=== PATIENT | female | born 1995 | race Caucasian/White ===

== ENCOUNTER → 2016-11-28 | Outpatient (CLI) | payer OTHER ==
--- NOTE | 2016-12-01 12:11 | EKG REPORT ---
SEVERITY:- NORMAL ECG - SINUS RHYTHM : Confirmed by: Jonnie Palomo MD 01-Dec-2016 12:11:07
--- NOTE | 2016-12-01 13:49 | [facility] ---
[facility] NAME: AURELIANO PLATT [facility] REFERENCE #: [id number] : 1995 DATE OF VISIT: 11/28/2016 PRIMARY CARE: [facility] ([facility]) - [place] office. CHIEF COMPLAINT: Follow up after SVT. HISTORY: Patient had a radiofrequency ablation for SVT about six years ago at [facility]. She is with her mother and sister today. She says that when she stands up, she feels dizzy and sees some visual stars. She has not had any sustained tachycardia or palpitations. She has some fatigue. She has a skipped beat for a second or two at times if she takes caffeine. She exercises well. She went to [place] last May and did great without medication and without any restrictions. MEDICATION: Has asthma pump. ALLERGIES TO MEDICATION: None. SOCIAL HISTORY: Home from [facility] [place], so the summer is with mom, dad, sister, and brother. The patient does not smoke. PAST MEDICAL HISTORY: Radiofrequency ablation in 2010. REVIEW OF SYSTEMS: Positive for headaches occasionally, but they are much improved over previous. Sleeping is good. However, she cannot sleep on her back because she gets paralysis. She has some back pains. She also gets pain in her knees, hip, and neck. Her joints are very lax. She does not have cough, but sometimes she feels short of breath when she tries to exercise. She is not generally unwell, has not lost weight. FAMILY HISTORY: There is high blood pressure. Older individuals with heart attacks, but no young sudden deaths. Asthma and diabetes positive. PHYSICAL EXAMINATION: Weight 172 pounds, height 69 inches, blood pressure 126/70, heart rate 96. General exam is a delightful 21-year-old young woman whose color and perfusion look good. Thyroid not enlarged or nodular. Lungs clear bilaterally. Precordial activity normal. Cardiac auscultation reveals no abnormal murmur, click, or gallop. Abdomen without hepatomegaly, splenomegaly, mass, or bruit. Extremities are not pallid. Abdomen without tenderness. Gait and coordination are normal. Distal pulses are normal. Twelve-lead electrocardiogram is normal with QTC of 422, a rate of 74, and normal sinus arrhythmia. T-wave morphologies are normal. No free excitation. IMPRESSION: SHE IS STATUS POST RADIOFREQUENCY ABLATION FOR SVT. SHE DOES NOT HAVE SYMPTOMS OF SVT AT THIS TIME, BUT REALLY JUST SOME POSTURAL DIZZINESS. SOMETIMES SHE GETS SOME CHEST TIGHTNESS OVER THE LEFT UPPER STERNUM WHEN SHE IS EXERCISING. A COMBINATION OF THE ORTHOSTATIC INTOLERANCE AND THE CHEST PAIN OVER THE LEFT UPPER SIDE SUGGESTS MILD AUTONOMIC ABNORMALITY. IT MAY RESPOND BEAUTIFULLY TO VERY LOW-DOSE ATENOLOL. I AM PUTTING HER ON 12.5 MG EACH MORNING AND ASKED HER TO CALL ME AND TELL ME HOW IT WORKS FOR HER SYMPTOMS. SHE SHOULD HYDRATE WELL AND LIMIT CAFFEINE. THEY WILL CALL ME WITH A SYMPTOMS REPORT. AT THIS TIME, HER SYMPTOMS DO NOT MANDATE A 30-DAY EKG EVENT RECORDER. JEWEL ANDRADE MD [id number] PHY#: [id number] ID: [id number] JOB#: [id number] ACCT: [id number] cc:JEWEL ANDRADE MD [facility] >
== END ==
LOC: PC 12:46
PROVIDERS: ATTEND Pediatrics Pediatric Cardiology
DX: I47.1 Supraventricular tachycardia (principal)
CPT/HCPCS: 93005; 93010